=== PATIENT | male | born 1980 | race Caucasian/White ===

== ENCOUNTER 2017-03-05 11:47 | Emergency (ER) | payer SELFPAY ==
[2017-03-05 12:38] VITALS: BP 137/97
--- NOTE | 2017-03-05 13:06 | ED ---
Back Pain - HPI Summary HPI Summary: 36 y/o male presents to the urgent care c/o back pain radiating to his left leg since 03/01/2017. Pt also states his pain is 5/10 and feels a tingling sensation or like he is standing on tacks. 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 He denies HX of lower back pain. He has taking Ibuprofen or tylenol to alleviate symptoms which has helped. Pt denies fever, SOB, N/V/D, chest pain, saddle anesthesia, urinary symptoms. - History of Current Complaint Chief Complaint: UCLowerExtremity Stated Complaint: LEFT LEG COMPLAINT Time Seen by Provider: 03/05/17 12:45 Hx Obtained From: Patient Onset/Duration: Gradual Onset, Lasting Days, Still Present Onset/Duration: Started Days Ago, Still Present Timing: Constant Back Pain Location: Radiates To - left leg Severity Initially: Moderate Severity Currently: Moderate Pain Intensity: 5 Pain Scale Used: 0-10 Numeric Aggravating Symptom(s): Lifting, Bending Alleviating Symptom(s): Rest Associated Signs And Symptoms: Positive: Numbness, Tingling. Negative: Swelling , Redness, Bruising, Fever, Flank Pain - Risk Factors AAA Risk Factors: Negative TAD Risk Factors: Negative Cauda Equina Risk Factors: Negative Epidural Abscess Risk Factors: Negative - Allergies/Home Medications Allergies/Adverse Reactions: Allergies Allergy/AdvReac Type Severity Reaction Status Date / Time No Known Allergies Allergy Verified 03/05/17 12:38 PMH/Surg Hx/FS Hx/Imm Hx Previously Healthy: Yes - Surgical History Surgery Procedure, Year, and Place: splenectomy, right hip fx repair with 2 titanium screws 2008; Infectious Disease History: No Infectious Disease History: Denies: Traveled Outside the [place] in Last 30 Days - Family History Known Family History: Positive: Hypertension, Diabetes Family History: Multiple Myeloma - Social History Occupation: Employed Full-time Lives: With Family Alcohol Use: None Substance Use Type: Reports: None Smoking Status (MU): Former Smoker Review of Systems Constitutional: Negative Eyes: Negative ENT: Negative Cardiovascular: Negative Respiratory: Negative Gastrointestinal: Negative Genitourinary: Negative Positive: Other - Lower back pain radiating to his left leg Skin: Negative Neurological: Negative Positive: Numbness - left foot Psychological: Normal All Other Systems Reviewed And Are Negative: Yes Physical Exam Triage Information Reviewed: Yes Vital Signs On Initial Exam: Initial Vitals Temp Pulse Resp BP Pulse Ox 98.8 F 57 18 137/97 99 03/05/17 12:26 03/05/17 12:26 03/05/17 12:26 03/05/17 12:26 03/05/17 12:26 Vital Signs Reviewed: Yes Appearance: Positive: Well-Appearing, No Pain Distress, Well-Nourished - 36 y/o male Skin: Positive: Warm, Skin Color Reflects Adequate Perfusion, Dry Head/Face: Positive: Normal Head/Face Inspection Eyes: Positive: Normal, EOMI, LORETO, Conjunctiva Clear ENT: Positive: Normal ENT inspection, Hearing grossly normal, Pharynx normal, TMs normal Neck: Positive: Supple, Nontender, No Lymphadenopathy Respiratory/Lung Sounds: Positive: Clear to Auscultation, Breath Sounds Present Cardiovascular: Positive: Normal, RRR, Pulses are Symmetrical in both Upper and Lower Extremities, S1, S2 Abdomen Description: Positive: Nontender, No Organomegaly, Soft, Bruit. Negative: CVA Tenderness (R), CVA Tenderness (L) Bowel Sounds: Positive: Present Musculoskeletal: Positive: Normal - No scoliosis or kyphosis noted, no rashes,, Strength/ROM Intact, Pain @ - tenderness on deep palaption over left paraspinal muscles and the level of L5-S1,no muscle spasm observe, mild tenderness on left hip, Posite pulses, sensation, strength, capillary refill over the left lower extrenity. Leg raised test: positive on left leg. Diagnostics - Vital Signs Vital Signs Temp Pulse Resp BP Pulse Ox 03/05/17 12:26 98.8 F 57 18 137/97 99 - Laboratory Lab Statement: Any lab studies that have been ordered have been reviewed, and results considered in the medical decision making process. Back Pain Course/Dx - Course Course Of Treatment: 36 y/o male c/o left lower back pain radiating to the left leg: Hx Obtained,. Pe abnormal findings:tenderness on deep palaption over left paraspinal muscles and the level of L5-S1,no muscle spasm observe, mild tenderness on left hip, Posite pulses, sensation, strength, capillary refill over the left lower extrenity. Leg raised test: positive on left leg. Pt Rx Medrol dose pack and Naproxen 500mg PO BID to alleviate symptoms. Advised to wear back support, to rest and avoid heavy lifting or strenuous exercises. If symptoms persisted or worsen advised to return to the urgent care or f/u with PCP. Pt understood and agreed, - Diagnoses Differential Diagnosis/HQI/PQRI: Positive: Arthritis, Fracture, Strain, Sprain Provider Diagnoses: Lower back pain Discharge - Discharge Plan Condition: Stable Disposition: HOME Prescriptions: Methylprednisolone [Medrol Dosepak 4 MG*] 4 mg PO .SEE DALJIT INSTRUCTION #1 tab Naproxen TAB* [Naprosyn 250 mg TAB*] 500 mg PO BID #14 tab Patient Education Materials: Acute Low Back Pain (ED), Lower Back Exercises (ED ) Referrals: [facility] [Outside] Additional Instructions: Please take medications as instructed to alleviate symptoms. No heavy lifting or strenuous exercise. If not improvement or symptoms worsen please return to the urgent care or call the [facility] referral [facility] to make an appt with a PCP. for further evaluation and treatment
== END 2017-03-05 13:24 | disposition home or self-care (01) ==
LOC: UCCORT 11:47
DX: M54.5 Low back pain (principal); X50.0XXA Overexertion from strenuous movement or load, initial encounter; X50.3XXA Overexertion from repetitive movements, initial encounter; Y93.89 Activity, other specified; Y92.69 Other specified industrial and construction area as the place of occurrence of the external cause; Y99.0 Civilian activity done for income or pay
CPT/HCPCS: 99202; G0463